=== PATIENT | male | born 1970 | race Two or more races ===

== ENCOUNTER 2020-09-23 22:08 | Emergency (ER) | payer MEDICAID ==
[~2020-09-23] VITALS: Ht 182.9 cm; Wt 68.0 kg
[2020-09-23 22:15] VITALS: BP 113/71
--- NOTE | 2020-09-23 22:20 | NUR ---
ED Nurse Note: pt comes in via EMS with sternal chest pain/pressure at 9/10 for the last 3 hours. 325 ASA and 0.8 nitro given on EMS. pt has no pmh. vs wnl although pt is slightly tachcardic at 118. 18g in LAC via EMS. 20g RAC here. both patent. labs collected. waiting on urine. ekg done, chest xray done. awaiting results. pt medicated and resting comfortably on stretcher, breathing without complications on RA. pt a&ox3. will continue to monitor.
--- NOTE | 2020-09-23 22:23 | Emergency Room Report ---
History of Present Illness General Chief Complaint: Chest Pain Source: Patient Present Illness HPI This is a 50-year-old male with no past medical history she presents with acute onset of chest pain. He was sitting down with his girlfriend when he developed sharp chest pain in mid substernal area. Pain is sharp in nature. 9 out of 10. No fever chills no nausea no vomiting. No diaphoresis. No radiation. This occurred about an hour prior to arrival. He called 911. EMS gave him nitroglycerin and aspirin without any relief. Never had this problem before. No cardiac history in the family that he knows of. Any alcohol or drug use. Allergies: Coded Allergies: No Known Allergies (Unverified , 09/23/20) COVID-19 Screening Contact w/high risk pt: No Experienced COVID-19 symptoms?: No COVID-19 Testing performed HOSPITAL EDUCATOR: No Patient History Past Medical History: see triage record, old chart reviewed Past Surgical History: none Pertinent Family History: none Social History: Denies: smoking Immunizations: other Reviewed Nursing Documentation: PMH: Agreed; PSxH: Agreed Review of Systems Eye: Denies: eye pain, blurred vision ENT: Denies: ear pain, nose congestion, throat swelling Respiratory: Denies: cough, shortness of breath Cardiovascular: Reports: chest pain; Denies: palpitations Gastrointestinal: Denies: abdominal pain, diarrhea, nausea, vomiting Musculoskeletal: Denies: back pain, joint pain Skin: Denies: rash Neurological: Denies: headache, numbness Endocrine: Denies: increased thirst, increased urine Hematologic/Lymphatic: Denies: easy bruising All Other Systems: negative except mentioned in HPI Physical Exam Vital Signs Date Time Temp Pulse Resp B/P (MAP) Pulse Ox O2 Delivery O2 Flow Rate FiO2 09/23/20 22:08 98.1 90 18 118/76 (90) 100 Room Air Vitals normal Sp02 EP Interpretation: reviewed, normal General Appearance: well appearing, no apparent distress, alert Head: normocephalic, atraumatic Eyes: bilateral eye PERRL, bilateral eye EOMI ENT: hearing grossly normal, normal pharynx Neck: full range of motion, supple, no meningismus Respiratory: chest non-tender, lungs clear, normal breath sounds Cardiovascular #1: regular rate, rhythm, no murmur, tachycardia Gastrointestinal: normal bowel sounds, non tender, no mass, no organomegaly, no bruit, non-distended Musculoskeletal: back normal, normal range of motion, gait/station normal Psychiatric: mood/affect normal Medical Decision Making Diagnostic Impression: Primary Impression: Chest pain Qualified Codes: R07.9 - Chest pain, unspecified Additional Impression: Methamphetamine abuse ER Course Patient presents with chest pain. No evidence of ACS, PE, dissection to name a few. Initially he denies any trauma but did tell me that he was doing a ditch the day before. Nothing along with strenuous activity and methamphetamine use, he probably has a muscle spasm. Patient felt better now. Will discharge home. EKG Diagnostic Results Troponin ordered: Yes Rate: tachycardiac Rhythm: NSR ST Segments: no acute changes Rhythm Strip Diag. Results EP Interpretation: yes Rate: 90 Rhythm: NSR, no PVC's, no ectopy Chest X-Ray Diagnostic Results Chest X-Ray Diagnostic Results : Chest X-Ray Ordered: Yes # of Views/Limited/Complete: 1 View Indication: Chest Pain EP Interpretation: Yes Interpretation: no consolidation, no effusion, no pneumothorax, no acute cardiopulmonary disease Impression: No acute disease Electronically Signed by: Elver Nickerson MD CT/MRI/US Diagnostic Results CT/MRI/US Diagnostic Results : Imaging Test Ordered: CT chest Impression Negative per radiologist Last Vital Signs Date Time Temp Pulse Resp B/P (MAP) Pulse Ox O2 Delivery O2 Flow Rate FiO2 09/23/20 22:08 98.1 90 18 118/76 (90) 100 Room Air Status: improved Disposition: HOME, SELF-CARE Condition: Stable Scripts Ibuprofen* (MOTRIN*) 600 Mg Tablet 600 MG ORAL Q6H PRN for For Pain, #30 TAB 0 Refills Prov: Elver Nickerson MD 09/24/20 Additional Instructions: Follow-up with your doctor in a 7 days. Return if symptoms worsen. Elver Nickerson MD Sep 23, 2020 22:23
[2020-09-23] MEDS ORDERED: HYDROmorphone 1mg/ml Carpuject IVP ONE ×2 (22:30→23:15)
[2020-09-23 22:33] LABS: BASOPHILS % (AUTO) 0.6 % (0.0-2.0); EOSINOPHILS % (AUTO) 2.1 % (0.0-3.0); HEMATOCRIT 47.6 % (42.0-52.0); HEMOGLOBIN 15.5 G/DL (14.2-18.0); LYMPHOCYTES % (AUTO) 14.9 % (20.0-45.0); MEAN CORPUSCULAR VOLUME 99 FL (80-99); MONOCYTES % (AUTO) 8.2 % (1.0-10.0); NEUTROPHILS % (AUTO) 74.2 % (45.0-75.0); PLATELET COUNT 323 K/UL (150-450); RED BLOOD COUNT 4.79 M/UL (4.70-6.10); RED CELL DISTRIBUTION WIDTH 11.9 % (11.6-14.8); WHITE BLOOD COUNT 10.5 K/UL (4.8-10.8)
[2020-09-23 22:43] LABS: ANION GAP 7 mmol/L (5-15); BLOOD UREA NITROGEN 15 mg/dL (7-18); CALCIUM 8.8 MG/DL (8.5-10.1); CARBON DIOXIDE 32 MMOL/L (21-32); CHLORIDE 103 MMOL/L (98-107); CREATININE 1.2 MG/DL (0.55-1.30); POTASSIUM 4.3 MMOL/L (3.5-5.1); SODIUM 142 MMOL/L (136-145)
[2020-09-23 22:48] LABS: ALANINE AMINOTRANSFERASE 29 U/L (12-78); ALBUMIN 3.8 G/DL (3.4-5.0); ALBUMIN/GLOBULIN RATIO 1.1 (1.0-2.7); ALKALINE PHOSPHATASE 80 U/L (46-116); ASPARTATE AMINO TRANSFERASE 18 U/L (15-37); BILIRUBIN,TOTAL 0.4 MG/DL (0.2-1.0)
--- NOTE | 2020-09-23 23:13 | NUR ---
ED Nurse Note: pt suddenly has pain come back at 8/10. pt was sleeping but is sweating perfusely. pt was medicated. pt is going to be transported to CT right now.
[2020-09-23] MEDS ORDERED: Omnipaque 350 100ml vial INJ PRN (23:15)
[2020-09-23 23:58] VITALS: BP 94/65
--- NOTE | 2020-09-24 00:23 | Diagnostic Imaging Report ---
EXAM: CT Chest With Intravenous Contrast CLINICAL HISTORY: CP TECHNIQUE: Axial computed tomography images of the chest with intravenous contrast. CTDI is 39.6 mGy and DLP is 127.6 mGy-cm. One or more of the following dose reduction techniques were used: automated exposure control, adjustment of the mA and/or kV according to patient size, use of iterative reconstruction technique. MIP reconstructed images were created and reviewed. COMPARISON: No relevant prior studies available. FINDINGS: Lungs: No pulmonary embolus. Mild bibasilar atelectasis or pneumonitis. Pleural space: Unremarkable. No pneumothorax. No effusion. Heart: No cardiomegaly. No pericardial effusion. Bones/joints: No acute fracture. Soft tissues: Unremarkable. Vasculature: Unremarkable. No thoracic aortic aneurysm. Lymph nodes: No enlarged lymph nodes. IMPRESSION: No pulmonary embolus.
[2020-09-24 00:43] VITALS: BP 111/79
--- NOTE | 2020-09-24 01:07 | NUR ---
ED Nurse Note: pt was able to give urine sample. jon yates. both sent to lab. vs wnl. breathing without difficulties on RA. pt states pain is 2/10. pt resting comfortably on stretcher in no signs of distress. will continue to monitor while awaiting results
[2020-09-24 01:18] LABS: APPEARANCE,URINE CLEAR; BILIRUBIN, URINE NEGATIVE (NEGATIVE); GLUCOSE, URINE (UA) NEGATIVE (NEGATIVE); KETONES,URINE NEGATIVE (NEGATIVE); LEUKOCYTE ESTERASE ,URINE 1+ (NEGATIVE); NITRITE,URINE NEGATIVE (NEGATIVE); PH,URINE 5 (4.5-8.0); PROTEIN,URINE 2+ (NEGATIVE); UROBILINOGEN,URINE 1 MG/DL (0.0-1.0)
[2020-09-24 01:22] LABS: COLOR,URINE YELLOW
--- NOTE | 2020-09-24 01:29 | NUR ---
ED Nurse Note: labs have resulted. awaiting further instructions. will continue to monitor.
[2020-09-24 01:50] VITALS: BP 110/70
[2020-09-24] MEDS ORDERED: IBUPROFEN600 M1 ORAL (02:00)
--- NOTE | 2020-09-24 02:00 | NUR ---
ER DISCHARGE NOTE: Patient is cleared to be discharged per ERMD, pt is aox4, on room air, with stable vital signs. pt was given dc and prescription instructions, pt was able to verbalize understanding, pt id band and iv site removed without complications. pt is able to ambulate with steady gait. pt took all belongings.
--- NOTE | 2020-09-24 14:20 | Diagnostic Imaging Report ---
Indication: Chest pain Technique: XRAY Chest 1v Comparison: None Findings: Heart size and mediastinal contours are within normal limits for AP technique. There is no focal airspace consolidation, pneumothorax or pleural effusion. Osseous structures demonstrate no acute abnormality. Impression: No radiographic evidence of acute cardiopulmonary disease.
--- NOTE | 2020-09-27 15:17 | Cardiology Report ---
APPROVED REPORT EKG Measurement Heart [id number] <Conclusion> Sinus tachycardia Septal infarct, age undetermined Abnormal ECG
== END 2020-09-24 02:00 | disposition home or self-care (01) ==
LOC: EDBD 22:08 → EMR 22:27
DX: R07.9 Chest pain, unspecified (principal); F15.10 Other stimulant abuse, uncomplicated
CPT/HCPCS: 36415; 71045; 71275; 80053; 80307; 81003; 84484; 85025; 85379; 93005; 96361; 96374; 96375; 96376; J1170; J2405; J7030; Q9967; Z7502; 99284